=== PATIENT | female | born 1995 | race Caucasian/White ===

== ENCOUNTER 2016-10-25 11:18 | Emergency (ER) | payer OTHER ==
[~2016-10-25] VITALS: Ht 165.1 cm; Wt 49.4 kg
[2016-10-25 11:20] VITALS: TEMP 37.1; Ht 165.1 cm; Wt 49.4 kg
[2016-10-25] MEDS ORDERED: ONDANSETRON INJ 2 MG/ML 2 ML VIAL IV STA (11:54)
[2016-10-25] MEDS ORDERED: SODIUM CHLORIDE 0.9% 1000ML 1,000 ML IV STA (11:54)
[2016-10-25 12:09] LABS: BASO % 0.2 %; BASO ABS # 0.02 K/uL (0-0.2); COMPLETE YES; EOS % 0.4 %; HEMATOCRIT 40.9 % (37-47); IG% 0.1 %; LYMPH % 31.5 %; LYMPH ABS # 2.62 K/uL (1.2-3.4); MEAN CELL VOLUME 82.8 fL (80-100); MEAN CORPUSCULAR HEMOGLOBIN 28.3 pg (25-34); MEAN CORPUSCULAR HGB CONC 34.2 g/dl (32-36); MEAN PLATELET VOLUME 11.2 fL (7.4-10.4); MONO % 6.3 %; NEUT % 61.5 %; PLATELET COUNT 314 K/uL (130-400); RED BLOOD COUNT 4.94 M/uL (4.2-5.4); WHITE BLOOD COUNT 8.31 K/uL (4.8-10.8)
[2016-10-25 12:29] LABS: BUN/CREATININE RATIO 12.9 (10-20); CALCIUM 10.1 mg/dl (8.5-10.1); POTASSIUM 3.8 mmol/L (3.5-5.1)
[2016-10-25 12:45] LABS: PREG INTERNAL NEGATIVE QC NEG CLEAR BACKGROUND; PREG INTERNAL POSITIVE QC POS CONTROL LINE
--- NOTE | 2016-10-25 13:04 | DIAGNOSTIC IMAGING REPORT ---
PA CHEST RADIOGRAPH AND UPRIGHT AND SUPINE AP RADIOGRAPHS OF THE ABDOMEN CLINICAL HISTORY: Abdominal pain, nausea and vomiting. COMPARISON STUDY: No previous studies for comparison. FINDINGS: Lung volumes are normal. Lungs are clear. There is no pneumothorax or pleural effusion. Cardiac size is normal. Mediastinal contours are normal. There is no evidence of pulmonary edema. There is no free air. Bowel gas pattern is normal. Skeletal structures are unremarkable. IMPRESSION: 1. No free air or evidence of bowel obstruction. 2. No acute cardiopulmonary findings. Electronically signed by: Bright Ohara M.D. 10/25/2016 1:03 PM Dictated Date/Time: 10/25/2016 1:02 PM
[2016-10-25] MEDS ORDERED: ONDA4TAB46 PO (13:49)
[2016-10-25 14:07] VITALS: BP 99/68; PULSE 76; O2SAT 100
--- NOTE | 2016-10-26 09:44 | EMERGENCY ROOM VISIT NOTE ---
ED Visit Note First contact with patient: 11:40 Chief Complaint: Abdominal pain, nausea and diarrhea History of Present Illness: Ms. Sweeney is a 21 year-old white female who ambulates into the ED accompanied by her mother complaining of nausea, diarrhea and diffuse abdominal pain. Historically patient reports no significant past medical history. Patient reports a acute onset of nausea that started 4 days ago, but she has not had any vomiting. Approximately one day after she started developing nausea she started noticing watery stools which has continued for the last 3 days. She reports she had 4 episodes of yellowish watery stools in the last 24 hours. Shortly after the watery stools started she reports she started having diffuse abdominal pain. She describes this pain as a cramping sensation. She has not identified one local area where her pain is. She rates her discomfort 4 /10. Her pain is nonradiating. Her pain worsens when she attempts to eat or has an episode of watery stools. She has not identified any alleviating factors related to the pain. She has not taken any medications for her symptoms prior to arrival at the hospital. Associated with her symptoms she reports she is feeling fatigued and tired. Additionally she does report over the holiday she had a urinary tract infection and was on an antibiotic. Patient denies fevers, chills, sweats, skin eruptions, skin color changes, upper respiratory tract symptoms, shortness of breath, chest pain, constipation , rectal bleeding, black/tarry stools, urinary symptoms, hematuria, vaginal bleeding, vaginal discharge, back/flank pain, recent out of country. Review of Systems: As noted above in history of present illness. All body systems were reviewed and found to be negative as noted above. Past Medical History: Status post teeth extraction. Current Medications: Patient denies. Allergies to Medications: Patient denies. Social History: Patient is [employer] student; she feels safe in her home environment; she denies tobacco use but admits to alcohol use. Physical Examination: Vital Signs: Date Time Temp Pulse Resp B/P Pulse Ox O2 Delivery O2 Flow Rate FiO2 10/25/16 14:07 76 20 99/68 100 10/25/16 12:09 85 16 103/64 100 Room Air 10/25/16 11:20 37.1 93 17 114/77 100 Room Air GENERAL: 21-year-old female in mild distress due to symptoms, nontoxic-appearing , afebrile and hemodynamically stable. NEUROLOGICAL: Awake, alert and oriented to person, place and time. Answering questions appropriately and following commands. Normal gait. Good hand eye coordination. SKIN: Warm, dry and pink. No soft tissue eruptions or trauma noted. HEENT: Atraumatic and normocephalic. PERRLA. Sclera white and conjunctiva pink. Oral cavity moist and pink. Pharynx is nonerythematous or edematous. Speech normal. No lymphadenopathy. Trachea midline. No jugular venous distention. BACK: No tenderness over the bony spine. No CVA tenderness. THORAX: Lungs sounds are clear to auscultation and equal bilaterally with symmetrical chest wall. No wheezing, rales or rhonchi. No crepitus, tenderness , subcutaneous air or deformities noted. HEART: Regular rate and rhythm. No gallops, rubs or murmurs are appreciated. ABDOMEN: Flat, soft and nontender. Decreased bowel sounds in all quadrants. No guarding, rigidity or organomegaly. EXTREMITIES: Moves all extremities well on command and with purpose. All distal neurovascular statuses are intact and equal bilaterally. ED Course: Patient is assessed as noted above. Laboratory Testing: Test 10/25/16 11:31 Range/Units White Blood Count 8.31 4.8-10.8 K/uL Red Blood Count 4.94 4.2-5.4 M/uL Hemoglobin 14.0 12.0-16.0 g/dL Hematocrit 40.9 37-47 % Mean Corpuscular Volume 82.8 80-100 fL Mean Corpuscular Hemoglobin 28.3 25-34 pg Mean Corpuscular Hemoglobin Concent 34.2 32-36 g/dl Platelet Count 314 130-400 K/uL Mean Platelet Volume 11.2 7.4-10.4 fL Neutrophils (%) (Auto) 61.5 % Lymphocytes (%) (Auto) 31.5 % Monocytes (%) (Auto) 6.3 % Eosinophils (%) (Auto) 0.4 % Basophils (%) (Auto) 0.2 % Neutrophils # (Auto) 5.11 1.4-6.5 K/uL Lymphocytes # (Auto) 2.62 1.2-3.4 K/uL Monocytes # (Auto) 0.52 0.11-0.59 K/uL Eosinophils # (Auto) 0.03 0-0.5 K/uL Basophils # (Auto) 0.02 0-0.2 K/uL RDW Standard Deviation 37.5 36.4-46.3 fL RDW Coefficient of Variation 12.5 11.5-14.5 % Immature Granulocyte % (Auto) 0.1 % Immature Granulocyte # (Auto) 0.01 0.00-0.02 K/uL Sodium Level 136 136-145 mmol/L Potassium Level 3.8 3.5-5.1 mmol/L Chloride Level 99 98-107 mmol/L Carbon Dioxide Level 25 21-32 mmol/L Anion Gap 12.0 3-11 mmol/L Blood Urea Nitrogen 13 7-18 mg/dl Creatinine 1.00 0.60-1.20 mg/dl Est Creatinine Clear Calc Drug Dose 70.0 ml/min Estimated GFR () 93.9 Estimated GFR (Non- 81.0 BUN/Creatinine Ratio 12.9 10-20 Random Glucose 79 70-99 mg/dl Calcium Level 10.1 8.5-10.1 mg/dl Total Bilirubin 1.2 0.2-1 mg/dl Direct Bilirubin 0.2 0-0.2 mg/dl Aspartate Amino Transf (AST/SGOT) 15 15-37 U/L Alanine Aminotransferase (ALT/SGPT) 14 12-78 U/L Alkaline Phosphatase 55 45-117 U/L Total Protein 9.6 6.4-8.2 gm/dl Albumin 4.9 3.4-5.0 gm/dl Lipase 125 73-393 U/L Human Chorionic Gonadotropin, Qual NEG NEG Patient was unable to provide a stool sample for study. Acute Abdominal X-Ray Series: A normal PA chest with no signs of infiltrates, effusions or pneumothorax. No free air under the diaphragm. Abdominal component shows a nonspecific bowel gas pattern without signs of obstruction. Patient was hydrated with normal saline and received 4 mg of Zofran IV for nausea; she was offered pain medications and refused. Patient was hydrated with normal saline, she received 4 mg of Zofran IV; she was offered pain medications and refused. Patient was reassessed at times during her stay in the emergency department. Patient's case was reviewed with Dr. Gutierrez; we agreed on diagnostic approach, treatment, disposition and plan. Patient was educated about tonight's findings and instructed on her treatment plan; she verbalizes understanding and agreement with this plan. Clinical Impression: Nausea. Diarrhea. An abdominal pain. Decision-Making: Initially my differential diagnosis I considered gastroenteritis, bowel obstruction, colitis, pancreatitis, hepatitis and other causes. Disposition: Patient discharged home in stable condition accompanied by friends ; prior to departure she was reassessed and subjectively reported she was pain- free. She reported she was still mildly nauseated but had no additional episodes of vomiting and no additional episodes of diarrhea. Plan: Patient was encouraged use 650 mg of acetaminophen every 6 hours as needed for pain. Patient was prescribed 4 mg of Zofran every 6 hours as needed for nausea or vomiting. Patient was encouraged to use [id number] Imodium or return of diarrhea; she was instructed to follow packaging instructions for doses. Patient was encouraged to well hydrated with increased clear fluids. Patient was encouraged use a bland diet and avoid stomach your tenths. Patient was encouraged to follow-up at [facility] for recheck in 3-4 days if no better. Patient was encouraged return ED for worsening nausea, worsening diarrhea, fevers, worsening abdominal pain, bloody vomitus, bloody stools or any new/ concerning symptoms.
== END 2016-10-25 14:09 | disposition home or self-care (01) ==
LOC: C.EDB 11:21
DX: R10.9 Unspecified abdominal pain (principal); R11.0 Nausea; R19.7 Diarrhea, unspecified